=== PATIENT | male | born 1955 | race Caucasian/White ===

== ENCOUNTER 2022-07-17 09:09 | Emergency (ER) | payer MEDICARE, SELFPAY ==
[2022-07-17] VITALS (7 sets, daily range): BP systolic 134–164; BP diastolic 83–98; PULSE 68–109; RESP 11–18; TEMP 36.7–36.8; O2SAT 95–98
--- NOTE | ~2022-07-17 | XR_ITS ---
EXAMINATION: XR chest 2V 07/17/2022 09:50 INDICATION: History of COPD PROCEDURE: 2 view chest COMPARISON: Comparison to multiple prior studies sequentially, with oldest reviewed study dated 04/05. FINDINGS: The lungs are clear. The cardiomediastinal silhouette is within normal limits. There are no pleural effusions. There is no pneumothorax suspected. IMPRESSION: 1: NO ACUTE CARDIOPULMONARY DISEASE. Reviewed, dictated and finalized at location A.
--- NOTE | ~2022-07-17 | CT_ITS ---
EXAMINATION: CT abdomen pelvis w con DATE: 07/17/2022 12:15 INDICATION: Cramping and bloating TECHNIQUE: Computed tomography (CT) of the abdomen and pelvis was performed with 100 cc Omnipaque 350 intravenous contrast. The dose-length product was 942.16 mGy-cm. Automated exposure control and iter ative reconstruction technique were employed. COMPARISON: None. FINDINGS: There is right middle lobe atelectasis/scarring. There is emphysema. There is right lower l obe bronchiectasis. There are gallstones. There is abnormal thickening of the distal aspect of the st omach and duodenum with mild surrounding inflammatory changes, consistent with gastroenteritis or pep tic ulcer disease. No evidence for perforation or abscess. No free air or free fluid. The spleen, and kidneys are unremarkable. There are small subcentimeter hypodense nodules of the adrenal glands, mos t likely benign adenomas. There are pancreatic calcifications, consistent with chronic pancreatitis. Nonobstructive bowel pattern. Normal appendix. Colonic diverticulosis without evidence for diverticul itis. Small fat-containing umbilical hernia. There is a lipoma involving the right posterior abdomina l wall musculature. Mild lumbar spondylosis. There is moderate osteoarthritis of the hips. IMPRESSION: 1. Abnormal thickening of the distal stomach and duodenum, consistent with gastroenteritis versus pep tic ulcer disease. 2: Cholelithiasis. 3: Chronic pancreatitis. Reviewed, dictated and finalized at location A. IMPRESSION: 1. Abnormal thickening of the distal stomach and duodenum, consistent with dean roenteritis versus peptic ulcer disease. 2: Cholelithiasis. 3: Chronic pancreatitis.
[2022-07-17] MEDS: SODIUM CHLORIDE 0.9% IV 1,000 ML 999 ML IV CONT ×2 (09:32→12:15)
[2022-07-17 09:38] LABS: Basophils Absolute Auto 0.1 K/mm3 (0.0-0.1); Basophils Percent Auto 0.4 % (0.2-1.2); Eosinophils Percent Auto 0.2 % (0-4.4); Hematocrit 52.2 % (42.0-52.0); Hemoglobin 18.1 g/dL (14.0-18.0); Immature Granulocyte Absolute 0.04 K/mm3 (0.00-0.031); Immature Granulocyte Percent A 0.3 % (0-0.5); Lymphocytes Absolute Auto 1.32 K/mm3 (0.9-3.2); Lymphocytes Percent Auto 10.1 % (18.3-44.2); Mean Corpuscular HGB Conc 34.7 g/dl (32-36); Mean Corpuscular Hemoglobin 29.6 pg (26-34); Mean Corpuscular Volume 85.3 fl (80-100); Mean Platelet Volume 9.1 fl (7.4-10.4); Monocytes Absolute Auto 1.2 K/mm3 (0.1-0.6); Monocytes Percent Auto 9.1 % (2.6-8.5); Neutrophils Absolute Auto 10.5 K/mm3 (1.3-6.7); Neutrophils Percent Auto 79.9 % (45.5-73.1); Platelet Count Result 318 k/mm3 (150-375); Red Blood Count 6.12 M/mm3 (4.6-6.20); Red Cell Distribution Width 12.4 % (11.5-14.5); White Blood Count 13.1 K/mm3 (4.5-10.0)
[2022-07-17 09:47] LABS: Alanine Aminotransferase 32 U/L (6-50); Albumin Level 4.7 g/dL (3.5-5.1); Alkaline Phosphatase 97 U/L (38-126); Anion Gap 10 mmol/L (8-16); Aspartate Amino Transferase 34 U/L (17-59); Bilirubin,Total 0.6 mg/dL (0.2-1.3); Blood Urea Nitrogen 55 mg/dL (9-20); Calcium 8.8 mg/dL (8.4-10.2); Carbon Dioxide 25 mmol/L (22-30); Chloride 91 mmol/L (98-107); Estimated CRCL calculation 38 ml/min; Estimated Glomerular Filt Rate 43; Glucose 388 mg/dL (65-110); Lipase 74 U/L (23-300); Potassium 4.3 mmol/L (3.4-5.0); Sodium 126 mmol/L (137-145)
--- NOTE | 2022-07-17 10:14 | ED.GENADULT ---
HPI - General Adult General Chief complaint: Nausea/Vomiting/Diarrhea Stated complaint: COPD diarrhea, nausea Time Seen by Provider: 07/17/22 09:14 History of Present Illness HPI narrative: Patient is a 67-year-old male who presents to the ER with multiple issues. Reports he has been feeling fatigued over the last week. Reports he had some cough and shortness of breath related to poor air quality recently. He was started on a inhaler which has helped. However last day he has developed some diarrhea and nausea. No dizziness. No loss consciousness. No fevers or chills or sweats. No urinary symptoms. Related Data Allergies Allergy/AdvReac Type Severity Reaction Status Date / Time azithromycin Allergy Mild Hives Verified 07/17/22 09:10 Review of Systems Review of Systems: All systems reviewed & are unremarkable except as noted in HPI and below Constitutional: Constitutional: Denies chills, Reports fatigue, Denies fever(s) and Reports weakness ENT: Denies nasal congestion and Denies sore throat Cardiovascular: Cardiovascular: Denies chest pain, Denies rapid heart rate and Denies radiating jaw, neck or arm pain Respiratory: Respiratory: Reports cough, Reports dyspnea and Reports wheezing Gastrointestinal: Gastrointestinal: Denies abdominal pain, Reports diarrhea, Reports nausea and Reports vomiting Genitourinary: Genitourinary: Denies dysuria and Denies urinary frequency Musculoskeletal: Musculoskeletal: Denies back pain and Denies myalgias PMFSH Past Medical History Medical History COPD (chronic obstructive pulmonary disease) Erectile dysfunction Hypertension Mixed hyperlipidemia Stage 3a chronic kidney disease (CKD) Supraventricular tachycardia 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, controlled, with neuropathy Surgical History Surgical History History of bilateral inguinal hernia repair History of right knee surgery Family History Family History Sibling Asthma Mother Asthma Diabetes mellitus Father Diabetes mellitus Hypertension Social History Social History Years smoked: 35 Smoking status: Former smoker Second hand tobacco smoke exposure: No Smoking end date: 02/08/04 Alcohol intake: current Drinks per week: 5 Substance use: never Substance use type: does not use Living arrangements: with family Occupation/Education: retired Gender identity (if verbalized by the patient): Male Sexual Orientation (if Verbalized by the Patient): Straight or Heterosexual Spiritual care concerns: No Agree to blood products: Yes Exam Narrative: GENERAL: Well-appearing, well-nourished, and in no acute distress. HEAD: Normocephalic, atraumatic. ENT: Mucous membranes moist. CHEST: Clear to auscultation. No respiratory distress. HEART: Regular rate and rhythm. Normal peripheral pulses. ABDOMEN: Soft, nontender, nondistended. EXTREMITIES: Normal range of motion. No edema. SKIN: Warm, dry, no rash. NEURO: Alert and oriented x3. PSYCH: Normal mood and affect. Course Course Emergency Course: Patient still some bloating and discomfort. CT scan abdomen. Evidence of gastritis versus peptic ulcer disease versus gastroenteritis. Educated patient on reasonable findings and treatment plan and he is verbalized understanding. Patient received 2 L of IV fluid. Vital Signs Vital signs: Vital Signs Pulse Oximetry 96 07/17/22 09:18 Temperature 98.3 F 07/17/22 11:00 Pulse Rate 68 07/17/22 11:00 Respiratory Rate 16 07/17/22 11:00 Blood Pressure 134/89 07/17/22 11:00 Pulse Oximetry 98 07/17/22 11:00 Oxygen Delivery Room Air 07/17/22 09:19 Medical Decision Making Vital
[2022-07-17 10:28] LABS: Appearance Urine Clear (Clear); Bilirubin Urine Negative (Negative); Blood Urine Negative (Negative); Color Urine Yellow (Yellow); Glucose Urine UA 3+ mg/dL (Negative); Ketones Urine Negative (Negative); Leukocyte Esterase Ur Negative LEU/UL (Negative); Nitrate Urine Negative (Negative); Protein Urine Negative (Negative); Urobilinogen Urine 0.2 mg/dL (<2.0)
[2022-07-17 10:35] LABS: Add Urine Microscopic? NO
== END 2022-07-17 13:01 | disposition home or self-care (01) ==
PROVIDERS: Emergency Provider Emergency Medicine; PCP Family Medicine Adolescent Medicine
DX: K52.9 Noninfective gastroenteritis and colitis, unspecified (principal); E86.0 Dehydration; J44.9 Chronic obstructive pulmonary disease, unspecified; I12.9 Hypertensive chronic kidney disease with stage 1 through stage 4 chronic kidney disease, or unspecified chronic kidney disease; E11.22 Type 2 diabetes mellitus with diabetic chronic kidney disease; N18.31 Chronic kidney disease, stage 3a; E78.2 Mixed hyperlipidemia; I47.1 Supraventricular tachycardia; E11.40 Type 2 diabetes mellitus with diabetic neuropathy, unspecified; Z87.891 Personal history of nicotine dependence; Z79.51 Long term (current) use of inhaled steroids; Z79.4 Long term (current) use of insulin; Z79.84 Long term (current) use of oral hypoglycemic drugs
CPT/HCPCS: 36415; 71046; 74177; 80053; 81003; 83690; 85025; 96360; 96361; 99284; J7030; Q9967

== ENCOUNTER 2023-01-24 13:56 | Outpatient (CLI) | payer MEDICARE, SELFPAY ==
[2023-01-24 15:01] LABS: Influenza A QL RT-PCR Negative (Negative); Influenza B QL RT-PCR Negative (Negative); RSV RNA, RT-PCR Negative (Negative); SARS-CoV-2 RNA PCR Positive (Negative)
== END 2023-01-24 13:57 | disposition home or self-care (01) ==
LOC: ANHLAB 13:57
PROVIDERS: PCP Family Medicine Adolescent Medicine; Visit Provider Nurse Practitioner Family
DX: R50.9 Fever, unspecified (principal); Z20.822 Contact with and (suspected) exposure to COVID-19
CPT/HCPCS: 87637

== ENCOUNTER 2023-04-21 19:48 | Emergency (ER) | payer MEDICARE, SELFPAY ==
[2023-04-21] VITALS (8 sets, daily range): BP systolic 170–181; BP diastolic 84–99; PULSE 107–123; RESP 13–25; TEMP 36.9; O2SAT 95–97
[2023-04-21 19:58] LABS: Glucose Point of Care 321 mg/dl (65-105)
[2023-04-21 20:13] LABS: Basophils Percent Auto 0.2 % (0.2-1.2); Hematocrit 53.7 % (42.0-52.0); Hemoglobin 18.5 g/dL (14.0-18.0); Immature Granulocyte Absolute 0.07 K/mm3 (0.00-0.031); Immature Granulocyte Percent A 0.4 % (0-0.5); Lymphocytes Percent Auto 5.3 % (18.3-44.2); Mean Corpuscular HGB Conc 34.5 g/dl (32-36); Mean Corpuscular Hemoglobin 29.5 pg (26-34); Mean Corpuscular Volume 85.5 fl (80-100); Mean Platelet Volume 9.1 fl (7.4-10.4); Monocytes Absolute Auto 0.5 K/mm3 (0.1-0.6); Monocytes Percent Auto 3.1 % (2.6-8.5); Neutrophils Absolute Auto 15.5 K/mm3 (1.3-6.7); Platelet Count Result 324 k/mm3 (150-375); Red Blood Count 6.28 M/mm3 (4.6-6.20); Red Cell Distribution Width 12.7 % (11.5-14.5); White Blood Count 17.1 K/mm3 (4.5-10.0)
[2023-04-21 20:23] LABS: Albumin Level 4.9 g/dL (3.5-5.1); Alkaline Phosphatase 94 U/L (38-126); Anion Gap 19 mmol/L (8-16); Aspartate Amino Transferase 30 U/L (17-59); Bilirubin,Total 0.8 mg/dL (0.2-1.3); Blood Urea Nitrogen 29 mg/dL (9-20); Calcium 10.4 mg/dL (8.4-10.2); Carbon Dioxide 18 mmol/L (22-30); Chloride 95 mmol/L (98-107); Estimated CRCL calculation 51 ml/min; Estimated Glomerular Filt Rate 51; Glucose 310 mg/dL (65-110); Lipase 92 U/L (23-300); Potassium 4.2 mmol/L (3.4-5.0); Sodium 132 mmol/L (137-145)
[2023-04-21 20:33] LABS: Alanine Aminotransferase 28 U/L (6-50)
[2023-04-21 21:36] LABS: Appearance Urine Clear (Clear); Bilirubin Urine Negative (Negative); Blood Urine Negative (Negative); Color Urine Yellow (Yellow); Glucose Urine UA 3+ mg/dL (Negative); Ketones Urine Trace mg/dL (Negative); Leukocyte Esterase Ur Negative LEU/UL (Negative); Nitrate Urine Negative (Negative); Protein Urine Negative (Negative); Urobilinogen Urine 0.2 mg/dL (<2.0)
[2023-04-21 21:40] LABS: Add Urine Microscopic? NO; Specific Grav Ur 1.035 (1.001-1.035)
[2023-04-21] MEDS: ONDANSETRON INJ 4 MG/2 ML VIAL IV PUSH (21:51)
[2023-04-21] MEDS: SODIUM CHLORIDE 0.9% IV 3,000 ML 999 ML IV CONT (21:51)
[2023-04-21] MEDS: FAMOTIDINE 20 MG/2 ML VIAL IV PUSH (21:51)
[2023-04-21 22:33] LABS: Influenza A QL RT-PCR Negative (Negative); Influenza B QL RT-PCR Negative (Negative); RSV RNA, RT-PCR Negative (Negative); SARS-CoV-2 RNA PCR Negative (Negative)
--- NOTE | 2023-04-21 23:22 | PC.NURSE ---
Patient ambulated to the restroom
--- NOTE | 2023-04-21 23:27 | ED.GENADULT ---
HPI - General Adult General Chief complaint: Nausea/Vomiting/Diarrhea Stated complaint: vomiting, diarrhea Time Seen by Provider: 04/21/23 21:16 History of Present Illness HPI narrative: this is a 67-year-old male presenting ED with chief complaint of nausea vomiting diarrhea x1 day. patient denies fever chills chest pain difficulty breathing abdominal pain or urinary symptoms. Patient says he has had the stomach flu 2 times previously this year with similar presentation. 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, controlled, with neuropathy Surgical History Surgical History History of bilateral inguinal hernia repair History of right knee surgery Family History Family History Sibling Asthma Mother Asthma Diabetes mellitus Father Diabetes mellitus Hypertension Social History Social History Years smoked: 35 Smoking status: Former smoker Second hand tobacco smoke exposure: No Smoking end date: 02/08/04 Alcohol intake: current Drinks per week: 5 Substance use: never Substance use type: does not use Living arrangements: with family Occupation/Education: retired Gender identity (if verbalized by the patient): Male Sexual Orientation (if Verbalized by the Patient): Straight or Heterosexual Spiritual care concerns: No Agree to blood products: Yes Exam Narrative: APPEARANCE: No apparent distress. Head: atraumatic. EYES: EOMI, NOSE: Atraumatic NECK: Trachea midline RESPIRATORY: No increased rate of breathing CTAB CARDIOVASCULAR: tachycardic, no peripheral edema ABDOMINAL: abdomen is soft nontender with no guarding or rebound MUSCULOSKELETAl: No obvious deformities NEURO: Alert. Moving 4/4 extremities SKIN:: Warm, dry. Normal color PSYCHIATRIC: Normal affect Course Vital Signs Vital signs: Vital Signs Temperature 98.5 F 04/21/23 19:51 Pulse Rate 123 H 03/14/24 19:51 Respiratory Rate 14 04/21/23 19:51 Blood Pressure 179/99 H 04/21/23 19:51 Pulse Oximetry 95 04/21/23 19:51 Oxygen Delivery Room Air 04/21/23 19:51 Temperature 98.5 F 04/21/23 19:51 Pulse Rate 96 04/22/23 00:31 Respiratory Rate 20 04/22/23 00:31 Blood Pressure 112/69 04/22/23 00:31 Pulse Oximetry 96 04/21/23 23:06 Oxygen Delivery Room Air 04/21/23 19:51 Medical Decision Making [facility] Narrative Medical decision making narrative: -Course: 67-year-old male presenting with 1 day of nausea vomiting diarrhea. Tachycardic on arrival. completely benign abdominal exam. Patient given 3 L of fluid and antiemetics. Heart rate improved. Patient is nowtolerating water. On re-evaluation his abdominal exam is still benign. White count is elevated but infectious disease workup is negative. repeate labowrk showed improvement in white count and metabolic panel. Clinicallly patient is much improved and requesting discharge. VSS and well-appearing. History and physical consistent with gastroenteritis. Discussed admission versus discharge the patient is comfortable going home and attempting oral hydration. Patient discharged with antiemetics. -DDX includes but is not limited to: Gastroenteritis, viral syndrome, dehydration, sepsis, UTI, pneumonia -Co-morbidities complicating care: COPD depression, diabetes -Hx from independent Sources: family at bedside -Jj
[2023-04-21] MEDS: MAG HYDROX/AL HYDROX/SIMETH 30 ML UDC PO (23:36)
[2023-04-21] MEDS: METOCLOPRAMIDE HCL INJ 10 MG/2 ML VIAL IV PUSH (23:36)
[2023-04-22 00:01] VITALS: BP 164/90; PULSE 115; RESP 29
[2023-04-22 00:02] VITALS: PULSE 109; RESP 24
[2023-04-22 00:15] VITALS: PULSE 113; RESP 21
[2023-04-22 00:31] VITALS: BP 112/69; PULSE 96; RESP 20
[2023-04-22 03:59] LABS: Anion Gap 8 mmol/L (8-16); Blood Urea Nitrogen 29 mg/dL (9-20); Calcium 8.7 mg/dL (8.4-10.2); Carbon Dioxide 19 mmol/L (22-30); Chloride 105 mmol/L (98-107); Estimated CRCL calculation 59 ml/min; Estimated Glomerular Filt Rate > 60; Glucose 214 mg/dL (65-110); Potassium 4.4 mmol/L (3.4-5.0); Sodium 132 mmol/L (137-145)
--- NOTE | 2023-04-22 04:05 | PC.NURSE ---
SEE DOWNTIME CHARTING
[2023-04-22 04:12] LABS: Basophils Percent Auto 0.1 % (0.2-1.2); Hematocrit 46.5 % (42.0-52.0); Hemoglobin 15.7 g/dL (14.0-18.0); Immature Granulocyte Absolute 0.07 K/mm3 (0.00-0.031); Immature Granulocyte Percent A 0.5 % (0-0.5); Lymphocytes Absolute Auto 0.67 K/mm3 (0.9-3.2); Lymphocytes Percent Auto 4.6 % (18.3-44.2); Mean Corpuscular HGB Conc 33.8 g/dl (32-36); Mean Corpuscular Hemoglobin 29.7 pg (26-34); Mean Corpuscular Volume 87.9 fl (80-100); Monocytes Absolute Auto 0.5 K/mm3 (0.1-0.6); Monocytes Percent Auto 3.2 % (2.6-8.5); Neutrophils Absolute Auto 13.3 K/mm3 (1.3-6.7); Neutrophils Percent Auto 91.6 % (45.5-73.1); Platelet Count Result 277 k/mm3 (150-375); Red Blood Count 5.29 M/mm3 (4.6-6.20); Red Cell Distribution Width 12.9 % (11.5-14.5); White Blood Count 14.5 K/mm3 (4.5-10.0)
== END 2023-04-22 03:55 | disposition home or self-care (01) ==
PROVIDERS: Emergency Provider Emergency Medicine; PCP Family Medicine Adolescent Medicine
DX: K52.9 Noninfective gastroenteritis and colitis, unspecified (principal); Z20.822 Contact with and (suspected) exposure to COVID-19; J44.9 Chronic obstructive pulmonary disease, unspecified; E78.2 Mixed hyperlipidemia; E11.22 Type 2 diabetes mellitus with diabetic chronic kidney disease; I12.9 Hypertensive chronic kidney disease with stage 1 through stage 4 chronic kidney disease, or unspecified chronic kidney disease; N18.31 Chronic kidney disease, stage 3a; E11.40 Type 2 diabetes mellitus with diabetic neuropathy, unspecified; F32.A Depression, unspecified; Z87.891 Personal history of nicotine dependence; R00.0 Tachycardia, unspecified; R94.31 Abnormal electrocardiogram [ECG] [EKG]; Z79.4 Long term (current) use of insulin; Z79.84 Long term (current) use of oral hypoglycemic drugs
CPT/HCPCS: 36415; 80048; 80053; 82948; 83690; 85025; 87637; 93005; 96361; 96374; 96375; 99284; A9270; J2405; J2765; J7030

== ENCOUNTER 2023-05-13 06:24 | Emergency (ER) | payer MEDICARE, SELFPAY ==
--- NOTE | ~2023-05-13 | CT_ITS ---
EXAMINATION: CT abdomen pelvis w con DATE: 05/13/2023 07:55 INDICATION: Abdominal pain. Nausea and vomiting. TECHNIQUE: Computed tomography (CT) of the abdomen and pelvis was performed with 100 mL Omnipaque 350 intravenous contrast. Automated exposure control and iterative reconstruction technique were employe d. The dose-length product was 932.71 mGy-cm. COMPARISON: None. FINDINGS: The visualized portions of the lung bases demonstrate emphysema and mild atelectasis. No pl eural effusion. The heart size is normal. No pericardial effusion. The liver is normal. There is a ga llstone in the gallbladder, which is normal in size. The spleen is normal. There are calcifications i n the pancreas, consistent with chronic pancreatitis. Left adrenal gland is normal. There is a 12 mm mass in right adrenal gland measuring soft tissue attenuation, likely an adenoma in the absence of kn own malignancy. There is a 12 mm cyst in right kidney. Left kidney is normal. There is a 3.0 cm lipom a in the right flank musculature. There is diverticulosis of the colon without evidence of diverticul itis. There are no dilated loops of bowel. The appendix is normal. Aortic atherosclerosis is noted. T here are no pathologically enlarged lymph nodes. There is no free intraperitoneal fluid. There is mil d thoracic and lumbar spondylosis. There is mild chronic anterior wedging of multiple thoracic verteb ral bodies. IMPRESSION: 1. No etiology for the patient's symptoms. Reviewed, dictated and finalized at location A.
[2023-05-13 06:32] VITALS: BP 179/97; PULSE 90; RESP 24; TEMP 36.7; O2SAT 98
[2023-05-13 07:03] LABS: Basophils Percent Auto 0.2 % (0.2-1.2); Hematocrit 52.8 % (42.0-52.0); Hemoglobin 17.8 g/dL (14.0-18.0); Immature Granulocyte Absolute 0.08 K/mm3 (0.00-0.031); Immature Granulocyte Percent A 0.4 % (0-0.5); Lymphocytes Absolute Auto 1.01 K/mm3 (0.9-3.2); Lymphocytes Percent Auto 5.1 % (18.3-44.2); Mean Corpuscular HGB Conc 33.7 g/dl (32-36); Mean Corpuscular Hemoglobin 29.5 pg (26-34); Mean Corpuscular Volume 87.6 fl (80-100); Mean Platelet Volume 9.3 fl (7.4-10.4); Monocytes Absolute Auto 1.4 K/mm3 (0.1-0.6); Monocytes Percent Auto 7.1 % (2.6-8.5); Neutrophils Absolute Auto 17.4 K/mm3 (1.3-6.7); Neutrophils Percent Auto 87.2 % (45.5-73.1); Platelet Count Result 381 k/mm3 (150-375); Red Blood Count 6.03 M/mm3 (4.6-6.20); Red Cell Distribution Width 12.7 % (11.5-14.5); White Blood Count 19.9 K/mm3 (4.5-10.0)
[2023-05-13 07:24] LABS: Alanine Aminotransferase 21 U/L (6-50); Albumin Level 4.8 g/dL (3.5-5.1); Alkaline Phosphatase 114 U/L (38-126); Anion Gap 14 mmol/L (4-12); Aspartate Amino Transferase 29 U/L (17-59); Bilirubin,Total 0.9 mg/dL (0.2-1.3); Blood Urea Nitrogen 39 mg/dL (9-20); Calcium 9.9 mg/dL (8.4-10.2); Carbon Dioxide 22 mmol/L (22-30); Chloride 93 mmol/L (98-107); Estimated CRCL calculation 50 ml/min; Estimated Glomerular Filt Rate 51; Glucose 323 mg/dL (65-110); Lipase 84 U/L (23-300); Potassium 4.4 mmol/L (3.4-5.0); Sodium 129 mmol/L (137-145)
[2023-05-13 07:30] VITALS: PULSE 114; RESP 17; O2SAT 94
--- NOTE | 2023-05-13 07:39 | ED.GENADULT ---
HPI - General Adult General Chief complaint: Nausea/Vomiting/Diarrhea Stated complaint: vomiting Time Seen by Provider: 05/13/23 06:55 History of Present Illness HPI narrative: 68-year-old male presents to the emergency department for evaluation of lower abdominal pain with associated nausea. Patient states that onset of the nausea and vomiting yesterday. Patient complains of lower abdominal pain. Patient denies any previous abdominal surgeries. Patient does have currently worsening dental caries. 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, controlled, with neuropathy Surgical History Surgical History History of bilateral inguinal hernia repair History of right knee surgery Family History Family History Sibling Asthma Mother Asthma Diabetes mellitus Father Diabetes mellitus Hypertension Social History Social History Years smoked: 35 Smoking status: Former smoker Second hand tobacco smoke exposure: No Smoking end date: 02/08/04 Alcohol intake: current Drinks per week: 5 Substance use: never Substance use type: does not use Living arrangements: with family Occupation/Education: retired Gender identity (if verbalized by the patient): Male Sexual Orientation (if Verbalized by the Patient): Straight or Heterosexual Spiritual care concerns: No Agree to blood products: Yes Exam Narrative: APPEARANCE: Well appearing, no pain, no distress, well-nourished. HEAD: normocephalic, atraumatic. Mouth: Multiple dental caries EYES: PERRLA/EOMI, conjunctivae clear. NOSE: Normal no drainage EARS:TMS clear with good light reflex. THROAT: Pharynx clear, no exudate. NECK: Supple. No adenopathy, no masses. RESPIRATORY: Airway patent, respirations nonlabored. Clear to auscultation bilaterally, no rales, rhonchi, wheezing. CARDIOVASCULAR: Regular rate and rhythm without murmurs rubs or gallops. ABDOMINAL: low abdominal tenderness to palpation MUSCULOSKELETAL: Moves all extremities. Strength/ROM intact, No edema, No calf tenderness. NEURO: Alert. Cranial nerves II through XII intact. grossly intact SKIN: Warm, dry. Normal Color Course Course Emergency Course: Patient was started on antibiotics for dental pain and encouraged to follow a clear liquid diet for his nausea vomiting Vital Signs Vital signs: Vital Signs Temperature 98.1 F 05/13/23 06:32 Pulse Rate 90 05/13/23 06:32 Respiratory Rate 24 H 05/13/23 06:32 Blood Pressure 179/97 H 05/13/23 06:32 Pulse Oximetry 98 05/13/23 06:32 Oxygen Delivery Room Air 05/13/23 06:32 Temperature 98.1 F 05/13/23 06:32 Pulse Rate 79 05/13/23 10:00 Respiratory Rate 23 H 05/13/23 10:00 Blood Pressure 179/97 H 05/13/23 06:32 Pulse Oximetry 97 05/13/23 10:00 Oxygen Delivery Room Air 05/13/23 06:32 Medical Decision Making MDM Narrative Medical decision making narrative: 68-year-old male presents to the emergency department for evaluation of abdominal pain that is been worsening since yesterday. patient was a afebrile but does have an elevated white blood cell count of 19.9. Patient's hemoglobin is 17.8. Patient's CMP is similar to his previous. CT scan showed no acute findings. P
[2023-05-13 07:40] LABS: Appearance Urine Clear (Clear); Bacteria Urine None Seen /hpf; Bilirubin Urine Negative (Negative); Blood Urine Negative (Negative); Color Urine Yellow (Yellow); Glucose Urine UA 3+ mg/dL (Negative); Ketones Urine Trace mg/dL (Negative); Leukocyte Esterase Ur Negative LEU/UL (Negative); Nitrate Urine Negative (Negative); Protein Urine Trace mg/dL (Negative); RBC Urine 0-2 /hpf (0-2); Squamous Epithelial Cell Urine None Seen /hpf (Few); Urobilinogen Urine 0.2 mg/dL (<2.0); WBC Urine 0-5 /hpf (0-3)
[2023-05-13 07:42] LABS: Add Urine Microscopic? YES; Specific Grav Ur 1.033 (1.001-1.035)
[2023-05-13] MEDS: PANTOPRAZOLE SODIUM IV 40 MG VIAL IV PUSH (08:01)
[2023-05-13] MEDS: SODIUM CHLORIDE 0.9% IV 1,000 ML 999 ML IV CONT (08:01)
[2023-05-13] MEDS: ONDANSETRON INJ 4 MG/2 ML VIAL IV PUSH (08:01)
[2023-05-13 09:20] VITALS: PULSE 86; RESP 27; O2SAT 92
[2023-05-13 09:30] VITALS: PULSE 75; RESP 24; O2SAT 96
[2023-05-13 09:47] VITALS: PULSE 72; RESP 21; O2SAT 97
[2023-05-13 10:00] VITALS: PULSE 79; RESP 23; O2SAT 97
== END 2023-05-13 10:12 | disposition home or self-care (01) ==
PROVIDERS: Emergency Medicine; Emergency Provider Emergency Medicine; PCP Family Medicine Adolescent Medicine
DX: R10.9 Unspecified abdominal pain (principal); K02.9 Dental caries, unspecified; E78.5 Hyperlipidemia, unspecified; N18.31 Chronic kidney disease, stage 3a; E11.22 Type 2 diabetes mellitus with diabetic chronic kidney disease; I12.9 Hypertensive chronic kidney disease with stage 1 through stage 4 chronic kidney disease, or unspecified chronic kidney disease; Z87.891 Personal history of nicotine dependence
CPT/HCPCS: 36415; 74177; 80053; 81001; 83690; 85025; 96361; 96374; 96375; 99284; C9113; J2405; J7030; Q9967

== ENCOUNTER 2023-06-03 10:58 | Emergency (ER) | payer MEDICARE, SELFPAY ==
--- NOTE | ~2023-06-03 | XR_ITS ---
EXAMINATION: XR chest 2V DATE: 06/03/2023 11:46 INDICATION: Shortness of breath. TECHNIQUE: Frontal and lateral views of the chest were obtained. COMPARISON: Chest 2 views 07/17/2022, CT abdomen FINDINGS: The lungs are hyperexpanded, consistent with emphysema. There is mild scarring in right mid dle lobe and lingula. There is no pneumonia, pleural effusion, or pneumothorax. The heart size is nor mal. IMPRESSION: 1. Chronic mild scarring in right middle lobe and lingula. 2. Emphysema. Reviewed, dictated and finalized at location A.
[2023-06-03 11:08] VITALS: BP 108/69; PULSE 147; RESP 22; O2SAT 95
--- NOTE | 2023-06-03 11:13 | ECG_ITS ---
SEE SCANNED COPY FOR CONFIRMED REPORT MTDD
[2023-06-03 11:21] VITALS: PULSE 147
[2023-06-03 11:22] LABS: Basophils Absolute Auto 0.1 K/mm3 (0.0-0.1); Basophils Percent Auto 0.9 % (0.2-1.2); Eosinophils Absolute Auto 0.7 K/mm3 (0-0.3); Eosinophils Percent Auto 5.8 % (0-4.4); Hemoglobin 17.1 g/dL (14.0-18.0); Immature Granulocyte Absolute 0.06 K/mm3 (0.00-0.031); Immature Granulocyte Percent A 0.5 % (0-0.5); Lymphocytes Absolute Auto 1.93 K/mm3 (0.9-3.2); Lymphocytes Percent Auto 15.7 % (18.3-44.2); Mean Corpuscular HGB Conc 34.2 g/dl (32-36); Mean Corpuscular Hemoglobin 29.6 pg (26-34); Mean Corpuscular Volume 86.5 fl (80-100); Mean Platelet Volume 9.4 fl (7.4-10.4); Monocytes Absolute Auto 1.2 K/mm3 (0.1-0.6); Monocytes Percent Auto 9.6 % (2.6-8.5); Neutrophils Absolute Auto 8.3 K/mm3 (1.3-6.7); Neutrophils Percent Auto 67.5 % (45.5-73.1); Platelet Count Result 394 k/mm3 (150-375); Red Blood Count 5.78 M/mm3 (4.6-6.20); Red Cell Distribution Width 12.7 % (11.5-14.5); White Blood Count 12.3 K/mm3 (4.5-10.0)
[2023-06-03 11:33] LABS: Alanine Aminotransferase 22 U/L (6-50); Albumin Level 4.3 g/dL (3.5-5.1); Alkaline Phosphatase 112 U/L (38-126); Anion Gap 10 mmol/L (4-12); Aspartate Amino Transferase 28 U/L (17-59); Bilirubin,Total 0.9 mg/dL (0.2-1.3); Blood Urea Nitrogen 34 mg/dL (9-20); Calcium 9.5 mg/dL (8.4-10.2); Carbon Dioxide 20 mmol/L (22-30); Chloride 98 mmol/L (98-107); Estimated CRCL calculation 57 ml/min; Estimated Glomerular Filt Rate 60; Glucose 388 mg/dL (65-110); Potassium 4.8 mmol/L (3.4-5.0); Sodium 128 mmol/L (137-145)
[2023-06-03 11:38] LABS: INR 0.9; Prothrombin Time 12.6 Seconds (11.1-14.7)
[2023-06-03 11:39] LABS: Partial Thromboplastin Time 27.7 Seconds (22.3-36.8)
[2023-06-03 11:44] LABS: NT Pro B Type Natriuretic Pept 1250 pg/mL (19.9-100); Troponin I < 0.012 ng/mL (0.000-0.034)
--- NOTE | 2023-06-03 12:18 | ED.ARRPALP ---
HPI - Arrhythmia/Palpitations General Chief Complaint: Arrhythmia/Palpitations Stated Complaint: FAST HEART RATE, HX SVT Time Seen by Provider: 06/03/23 11:14 Source: patient and family (mom and ) Limitations: no limitations History of Present Illness HPI narrative: Patient presents with reported palpitations beginning at 0500 approximately. He also reportedly felt dizzy and had been short of breath but the latter resolved. Currently on anbiotics for a sinus infection so had been feeling a bit unwell for the past few days. History of SVT requiring pharmacologic intervention but no prior history cardioversion. No caffeine for the past 3-4 days. Occasional marijuana but denies illicit drugs including no amphetamines, cocaine. Follows with lead java programmer Dr Duran. States his meds are metoprolol, amlodipine, and spironolactone. Reports compliance. 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 Denies illicit drugs Living arrangements: with family Occupation/Education: retired Gender identity (if verbalized by the patient): Male Sexual Orientation (if Verbalized by the Patient): Straight or Heterosexual Spiritual care concerns: No Agree to blood products: Yes Exam Const: General: healthy appearing, no acute distress and alert; No diaphoretic or ill appearing Nutritional Appearance: well nourished Orientation/consciousness: patient oriented x3 Limitations: no limitations HENMT: Head: normal to inspection Ears: external ears normal Face/Nose/Sinus: Normal external nose present Face and sinus: normal facial exam Eyes: Conjunctivae: conjunctivae normal Direct Ophthalmoscopy: no photophobia Neck: Neck: normal visual inspection and no meningeal signs Chest: Chest palpation & inspection: normal inspection of the chest and no tenderness Resp: Effort & Inspection: normal respiratory effort, not labored, no retractions, tachypneic and no use of accessory muscles Cardio: Rate: tachycardic Rhythm: regular rhythm GI: Inspection: non-distended Skin: General skin exam: normal color, no jaundice and no pallor Neuro: General: patient oriented x3, moves all extremities, no meningeal signs and no focal motor deficits Speech: normal speech Extrem: General: normal to inspection Other: no edema Psych: Mental Status: mental status grossly normal Affect: normal affect Attitude: cooperative Course Vital Signs Vital signs: Vital Signs Pulse Rate 147 H 06/03/23 11:08 Respiratory Rate 22 H 06/03/23 11:08 Blood Pressure 108/69 06/03/23 11:08 Pulse Oximetry 95 06/03/23 11:08 Oxygen Delivery Room Air 06/03/23 11:08 Pulse Rate 87 06/03/23 15:31 Respiratory Rate 19 06/03/23 15:31 Blood Pressure 125/82 06/03/23 15:31 Pulse Oximetry 97 06/03/23 15:3
[2023-06-03 12:55] LABS: Ethanol < 10 mg/dL (<10)
[2023-06-03 13:01] LABS: Magnesium 1.8 mg/dL (1.6-2.3)
[2023-06-03 13:06] VITALS: BP 109/94; PULSE 171; RESP 18; O2SAT 96
[2023-06-03] MEDS: ADENOSINE IV SOLN 6 MG/2 ML VIAL IV PUSH (13:21)
[2023-06-03] MEDS: ADENOSINE IV SOLN 6 MG/2 ML VIAL 12 MG IV PUSH ×2 (13:25→13:27)
--- NOTE | 2023-06-03 13:34 | ECG_ITS ---
SEE SCANNED COPY FOR CONFIRMED REPORT MTDD
[2023-06-03 15:31] VITALS: BP 125/82; PULSE 87; RESP 19; O2SAT 97
== END 2023-06-03 15:32 | disposition home or self-care (01) ==
PROVIDERS: Emergency Provider Student in an Organized Health Care Education/Training Program; PCP Family Medicine Adolescent Medicine
DX: I47.10 Supraventricular tachycardia, unspecified (principal); D72.829 Elevated white blood cell count, unspecified; R00.2 Palpitations; E11.65 Type 2 diabetes mellitus with hyperglycemia; E78.5 Hyperlipidemia, unspecified; D75.839 Thrombocytosis, unspecified; E87.1 Hypo-osmolality and hyponatremia; R79.89 Other specified abnormal findings of blood chemistry; N18.31 Chronic kidney disease, stage 3a; I12.9 Hypertensive chronic kidney disease with stage 1 through stage 4 chronic kidney disease, or unspecified chronic kidney disease; E11.22 Type 2 diabetes mellitus with diabetic chronic kidney disease; Z87.891 Personal history of nicotine dependence
CPT/HCPCS: 36415; 71046; 80053; 80307; 83735; 83880; 84443; 84484; 85025; 85610; 85730; 93005; 96374; 99284; J0153; J7030

== ENCOUNTER 2023-06-05 18:04 | Emergency (ER) | payer MEDICARE, SELFPAY ==
[2023-06-05] VITALS (15 sets, daily range): BP systolic 105–135; BP diastolic 63–99; PULSE 83–149; RESP 14–20; TEMP 36.4; O2SAT 93–97
--- NOTE | ~2023-06-05 | XR_ITS ---
EXAMINATION: XR chest 1V portable DATE: 06/05/2023 18:57 INDICATION: Chest pain. Shortness of breath. TECHNIQUE: A single frontal view of the chest was obtained. COMPARISON: Chest 2 views 06/03/2023 FINDINGS: There is no pneumonia, pleural effusion, or pneumothorax. The heart size is normal. IMPRESSION: 1. No acute cardiopulmonary disease. Reviewed, dictated and finalized at location E.
--- NOTE | 2023-06-05 18:15 | ECG_ITS ---
SEE SCANNED COPY FOR CONFIRMED REPORT MTDD
--- NOTE | 2023-06-05 18:22 | PC.NURSE ---
Dr. Grayson at bedside evaluating patient
--- NOTE | 2023-06-05 18:24 | ED.ARRPALP ---
HPI - Arrhythmia/Palpitations General Chief Complaint: Arrhythmia/Palpitations Stated Complaint: increased HR Time Seen by Provider: 06/05/23 18:20 History of Present Illness HPI narrative: patient is a 68-year-old male who presents to the ER with racing of the heart. Feels weak and nauseous. No syncope. No chest pain. Has history of SVT. Was converted 2 days ago. Took 7 5 mg metoprolol yesterday with only 50 mg today. He did have some ice tea today. Related Data Allergies Allergy/AdvReac Type Severity Reaction Status Date / Time azithromycin Allergy Mild Hives Verified 06/03/23 11:12 Review of Systems Review of Systems: All systems reviewed & are unremarkable except as noted in HPI and below Constitutional: Constitutional: Reports no additional constitutional complaints ENT: Reports system reviewed and no additional complaints, except as documented Cardiovascular: Cardiovascular: Denies chest pain, Reports rapid heart rate and Denies radiating jaw, neck or arm pain Respiratory: Respiratory: Reports no additional respiratory complaints Gastrointestinal: Gastrointestinal: Reports no additional gastrointestinal complaints Musculoskeletal: Musculoskeletal: Reports no additional musculoskeletal complaints [facility] Past Medical History Medical History COPD (chronic obstructive pulmonary disease) Erectile dysfunction Hypertension Mixed hyperlipidemia Stage 3a chronic kidney disease (CKD) Supraventricular tachycardia 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, controlled, with neuropathy Surgical History Surgical History History of bilateral inguinal hernia repair History of right knee surgery Family History Family History Sibling Asthma Mother Asthma Diabetes mellitus Father Diabetes mellitus Hypertension Social History Social History Years smoked: 35 Smoking status: Former smoker Second hand tobacco smoke exposure: No Smoking end date: 02/08/04 Alcohol intake: current Drinks per week: 5 Substance use: never Substance use type: does not use Living arrangements: with family Occupation/Education: retired Gender identity (if verbalized by the patient): Male Sexual Orientation (if Verbalized by the Patient): Straight or Heterosexual Spiritual care concerns: No Agree to blood products: Yes Exam Narrative: GENERAL: Uncomfortable-appearing, well-nourished, and in no acute distress. HEAD: Normocephalic, atraumatic. ENT: Mucous membranes moist. NECK: Supple. CHEST: Clear to auscultation. No respiratory distress. HEART: tachycardic and regular. Normal peripheral pulses. ABDOMEN: Soft, nontender, nondistended. EXTREMITIES: Normal range of motion. No edema. SKIN: Warm, dry, no rash. NEURO: Alert and oriented x3. PSYCH: Normal mood and affect. Course Course Emergency Course: patient feels improved after 6 of Adenocard. Labs reviewed. Patient did not take his insulin after eating because he went into SVT which is why his glucose is high. discussed with cardiology, recommends he take metoprolol 100 mg daily. Patient verbalized understanding of this. Discharge. Vital Signs Vital signs: Vital Signs Temperature 97.5 F L 06/05/23 18:14 Pulse Rate 149 H 06/05/23 18:14 Respiratory Rate 20 06/05/23 18:14 Blood Pressure 118/90 06/05/23 18:14 Pulse Oximetry 94 06/05/23 18:14 Temperature 97.5 F L 06/05/23 18:14 Pulse Rate 95 06/05/23 18:37 Respiratory Rate 17 06/05/23 18:37 Blood Pressure 105/84 06/05/23 18:31 Pulse Oximetry 97 06/05/23 18:37 Oxygen Delivery Room Air 06/05/23 18:17 MDM - Arrhythmia/Palpitations Lab Data 06/05/23 18:17
[2023-06-05 18:26] LABS: Basophils Absolute Auto 0.1 K/mm3 (0.0-0.1); Basophils Percent Auto 0.6 % (0.2-1.2); Eosinophils Absolute Auto 1.7 K/mm3 (0-0.3); Eosinophils Percent Auto 12.2 % (0-4.4); Hematocrit 48.8 % (42.0-52.0); Hemoglobin 16.9 g/dL (14.0-18.0); Immature Granulocyte Absolute 0.05 K/mm3 (0.00-0.031); Immature Granulocyte Percent A 0.4 % (0-0.5); Lymphocytes Absolute Auto 2.44 K/mm3 (0.9-3.2); Lymphocytes Percent Auto 17.3 % (18.3-44.2); Mean Corpuscular HGB Conc 34.6 g/dl (32-36); Mean Corpuscular Hemoglobin 29.8 pg (26-34); Mean Corpuscular Volume 86.1 fl (80-100); Mean Platelet Volume 9.6 fl (7.4-10.4); Monocytes Absolute Auto 1.4 K/mm3 (0.1-0.6); Monocytes Percent Auto 9.7 % (2.6-8.5); Neutrophils Absolute Auto 8.4 K/mm3 (1.3-6.7); Neutrophils Percent Auto 59.8 % (45.5-73.1); Platelet Count Result 384 k/mm3 (150-375); Red Blood Count 5.67 M/mm3 (4.6-6.20); Red Cell Distribution Width 12.4 % (11.5-14.5); White Blood Count 14.1 K/mm3 (4.5-10.0)
--- NOTE | 2023-06-05 18:29 | PC.NURSE ---
Dr. Kenan FRANK for 6mg adenosine IVP stat. Pt placed on lifeRABTk monitor. IVF started. Adenosine 6mg IV pushed at 1830 Second ekg performed with patient in sinus tachycardia at 108
[2023-06-05] MEDS: SODIUM CHLORIDE 0.9% IV 1,000 ML 999 ML IV CONT (18:30)
--- NOTE | 2023-06-05 18:34 | ECG_ITS ---
SEE SCANNED COPY FOR CONFIRMED REPORT MTDD
[2023-06-05 18:36] LABS: INR 0.9; Prothrombin Time 12.4 Seconds (11.1-14.7)
[2023-06-05 18:38] LABS: Alanine Aminotransferase 20 U/L (6-50); Albumin Level 4.3 g/dL (3.5-5.1); Alkaline Phosphatase 133 U/L (38-126); Anion Gap 10 mmol/L (4-12); Aspartate Amino Transferase 19 U/L (17-59); Bilirubin,Total 0.5 mg/dL (0.2-1.3); Blood Urea Nitrogen 30 mg/dL (9-20); Calcium 9.7 mg/dL (8.4-10.2); Carbon Dioxide 22 mmol/L (22-30); Chloride 101 mmol/L (98-107); Estimated CRCL calculation 50 ml/min; Estimated Glomerular Filt Rate 51; Glucose 408 mg/dL (65-110); Lipase 131 U/L (23-300); Potassium 4.1 mmol/L (3.4-5.0); Sodium 133 mmol/L (137-145)
[2023-06-05 18:49] LABS: Troponin I < 0.012 ng/mL (0.000-0.034)
== END 2023-06-05 20:27 | disposition home or self-care (01) ==
PROVIDERS: Emergency Provider Emergency Medicine; PCP Family Medicine Adolescent Medicine
DX: I47.10 Supraventricular tachycardia, unspecified (principal); J44.9 Chronic obstructive pulmonary disease, unspecified; I12.9 Hypertensive chronic kidney disease with stage 1 through stage 4 chronic kidney disease, or unspecified chronic kidney disease; E11.22 Type 2 diabetes mellitus with diabetic chronic kidney disease; N18.31 Chronic kidney disease, stage 3a; E11.40 Type 2 diabetes mellitus with diabetic neuropathy, unspecified; E78.2 Mixed hyperlipidemia; Z87.891 Personal history of nicotine dependence; I48.92 Unspecified atrial flutter; Z79.4 Long term (current) use of insulin; Z79.84 Long term (current) use of oral hypoglycemic drugs
CPT/HCPCS: 36415; 71045; 80053; 83690; 84484; 85025; 85610; 85730; 93005; 96360; 99284; J0153; J7030

== ENCOUNTER 2024-06-15 12:34 | Emergency (ER) | payer MEDICARE, SELFPAY ==
--- NOTE | ~2024-06-15 | XR_ITS ---
Right wrist Technique: PA, oblique, lateral, and ulnar deviation views were obtained. Clinical History: Pain and swelling Findings: No acute fracture or dislocation is seen. Chronic nonunited fracture of the study process p resent. There is chondrocalcinosis of the TFCC. Osseous alignment is anatomic. Mild degenerative owen ge of the first CMC joint and triscaphe joint present. Soft tissues are otherwise unremarkable. Impression: No acute abnormality. 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 Chondrocalcinosis of the TFCC. Degenerative changes, as above. Reviewed, dictated and finalized at location M. Impression: No acute abnormality. 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 Chondrocalcinosis of the TFCC. Degenerative changes, as above.
[2024-06-15 12:50] VITALS: BP 153/75; PULSE 71; RESP 16; TEMP 36.8; O2SAT 93
--- NOTE | 2024-06-15 12:58 | ED_ITS ---
HPI - Extremity Injury (Upper) General Chief Complaint: Extremity Injury, Upper Stated Complaint: Right Hand Pain Time Seen by Provider: 06/15/24 12:58 Source: patient Mode of arrival: ambulatory Limitations: no limitations History of Present Illness HPI narrative: 69 yo M presents with pain to R wrist. Fell 3 days ago. Tripped and fell forward, put arms out to catch himself. Did not hit head. Was able to get up on his own. CMS intact. Patient arrived with [place] wrap from home. All systems reviewed and negative except as noted above. Related Data Allergies Allergy/AdvReac Type Severity Reaction Status Date / Time azithromycin Allergy Mild Hives Verified 06/15/24 12:40 Review of Systems Review of Systems: CONSTITUTIONAL: Denies fever, chills, or sweats. EYES: Denies visual changes, redness, or discharge. ENT: Denies rhinorrhea, congestion, sore throat, or otalgia. CARDIOVASCULAR: Denies chest pain, palpitations, or edema. RESPIRATORY: Denies cough or dyspnea. GASTROINTESTINAL: Denies abdominal pain, nausea, vomiting, or diarrhea. GENITOURINARY: Denies dysuria or hematuria. SKIN: Denies rash or itching. MUSCULOSKELETAL: Denies back pain, joint pain, or myalgia. Reports right wrist pain with swelling. NEUROLOGIC: Denies headache, numbness, or weakness. PSYCHIATRIC: Denies anxiety or depression. All other systems reviewed are negative, except as documented in HPI. 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, controlled, with neuropathy Erectile dysfunction Hypertension COPD (chronic obstructive pulmonary disease) Supraventricular tachycardia Testicular hypofunction Mixed hyperlipidemia Surgical History Surgical History History of bilateral inguinal hernia repair History of right knee surgery Family History Family History Sibling Asthma Mother Asthma Diabetes mellitus Father Diabetes mellitus Hypertension Social History Social History Years smoked: 35 Smoking status: Former smoker Second hand tobacco smoke exposure: No Smoking end date: 02/08/04 Alcohol intake: current Drinks per week: 5 Other substance usage details: Occasional marijuana. Denies illicit drugs Do You Feel Safe in your Home?: Yes Lack of Transportation: No Lack of Food: Never True Current Housing: I Have Housing Concerned About Future Housing: No Difficulty Paying Gas/Electric Bills: No Difficulty Paying for Meds: Decline to Answer Currently Unemployed: No Education: High School Diploma/GED Difficulty w/ Childcare or Family Care: No Living arrangements: with family Occupation/Education: retired Gender identity (if verbalized by the patient): Male Sexual Orientation (if Verbalized by the Patient): Straight or Heterosexual Spiritual care concerns: No Agree to blood products: Yes Comments At time of signature, agree with nursing past medical, surgical, social and family history. There is no relevant family history pertinent to the presenting complaint. Exam Narrative: GENERAL: This is a well-nourished, well-developed patient, in no apparent distress. HEAD: normocephalic, atraumatic. EYES: PERRL. Sclera clear/white. Vision is grossly intact. EARS: External ears normal NOSE: External nose normal NECK: Neck supple, non-tender without lymphadenopathy, masses or thyromegaly. CARDIOVASCULAR: Regular rate and rhythm without murmurs, gallops, or rubs. RESPIRATORY: Clear to auscultation. Breath sounds equal bilaterally. No wheezes, rales, or rhonchi. SKIN: warm, Dry, intact with no suspicious lesions or rash, good texture and turgor. NEURO: awake, alert, and oriented to person, place and time. There were no obvious focal neurologic abnormalities. EXTREMITIES: Mild amount of swelling to right wrist with generalized tenderness. flexion and extension slightly decreased due to pain and swelling. Neurovascularly intact. Course Course Level of Care: Express Care Visit Vital Signs Vital signs: Vital Signs Temperature 36.8 C 06/15/24 12:50 Pulse Rate 71 06/15/24 12:50 Respiratory Rate 16 06/15/24 12:50 Blood Pressure 153/75 H 06/15/24 12:50 Pulse Oximetry 93 06/15/24 12:50 Oxygen Delivery Room Air 06/15/24 12:50 Temperature 36.8 C 06/15/24 12:50 Pulse Rate 71 06/15/24 12:50 Respiratory Rate 16 06/15/24 12:50 Blood Pressure 153/75 H 06/15/24 12:50 Pulse Oximetry 93 06/15/24 12:50 Oxygen Delivery Room Air 06/15/24 12:50 Reviewed MDM - Extremity Injury (Upper) MDM Narrative Medical decision making narrative: x-ray of right wrist negative for fracture. Discussed results with patient. Patient placed in [place] wrap. Recommend ice, ibuprofen, Tylenol. Recommend follow-up with primary care physician if not improving. Imaging Data My impression: Agree with radiologist Radiologist's impression: Right wrist Technique: PA, oblique, lateral, and ulnar deviation views were obtained. Clinical History: Pain and swelling Findings: No acute fracture or dislocation is seen. Chronic nonunited fracture of the study process present. There is chondrocalcinosis of the TFCC. Osseous alignment is anatomic. Mild degenerative change of the first CMC joint and triscaphe joint present. Soft tissues are otherwise unremarkable. Impression: No acute abnormality. 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 Chondrocalcinosis of the TFCC. Degenerative changes, as above. Discharge Plan Discharge Clinical Impression: Right wrist sprain Qualifiers: Encounter type: initial encounter Wrist sprain location: unspecified location Qualified Code(s): S63.501A - Unspecified sprain of right wrist, initial encounter Patient Disposition: Home Condition: Stable Instructions: Wrist Sprain (ED) Additional Instructions: The x-ray of your right wrist was negative for fracture. Take ibuprofen every 6-8 hours as needed for pain. Apply ice as needed for pain. Elevate when at rest. Follow-up with your primary care physician if swelling and pain not improving. Patient Language: Estonian Prescriptions: New ibuprofen 600 mg tablet 600 mg PO Q6H PRN (Reason: pain) Qty: 30 0RF No Action olopatadine [Pataday Once Daily Relief] 0.2 % drops 1 drp EACH EYE DAILY PRN (Reason: itching) Qty: 2.5 0RF fluticasone propionate 50 mcg/actuation blister with device 2 inh inhalation Q12H Qty: 60 0RF cyclobenzaprine 5 mg tablet 5 mg PO TID PRN (Reason: muscle spasm) Qty: 20 0RF Toujeo Max U-300 SoloStar 300 unit/mL (3 mL) insulin pen See Rx Instructions .ROUTE .COMPLEX Qty: 18 2RF Dose Instruction: INJECT SUBCUTANEOUSLY 46 UNITS DAILY Rx Instructions: INJECT SUBCUTANEOUSLY 38 UNITS DAILY lidocaine (PF) 10 mg/mL (1 %) solution 10 mg intra-articular ONCE Qty: 2 0RF albuterol sulfate 2.5 mg /3 mL (0.083 %) solution for nebulization 2.5 mg inhalation Q4-6H PRN (Reason: shortness of breath or wheezing) Qty: 180 0RF montelukast 10 mg tablet See Rx Instructions .ROUTE .COMPLEX Qty: 100 2RF Dose Instruction: TAKE 1 TABLET BY MOUTH DAILY AT BEDTIME Rx Instructions: TAKE 1 TABLET BY MOUTH DAILY AT BEDTIME fenofibrate 160 mg tablet See Rx Instructions .ROUTE .COMPLEX Qty: 100 2RF Dose Instruction: TAKE 1 TABLET BY MOUTH DAILY Rx Instructions: TAKE 1 TABLET BY MOUTH DAILY sildenafil 100 mg tablet See Rx Instructions .ROUTE .COMPLEX Qty: 12 2RF Dose Instruction: TAKE 1 TABLET BY MOUTH DAILY NEEDED FOR SEXUAL ACTIVITY, ADMINISTER 1/2 HOUR TO 4 HOURS BEFORE ACTIVITY Rx Instructions: TAKE 1 TABLET BY MOUTH DAILY NEEDED FOR SEXUAL ACTIVITY, ADMINISTER 1/2 HOUR TO 4 HOURS BEFORE ACTIVITY (DME) pen needle, diabetic [Comfort EZ Pen [place]] 33 gauge x 3/16 needle See Rx Instructions .ROUTE .COMPLEX Qty: 100 3RF Dose Instruction: USE 1 DAILY TO INJECT INSULIN SUBCUTANEOUSLY Rx Instructions: USE 1 DAILY TO INJECT INSULIN SUBCUTANEOUSLY metoprolol succinate 100 mg tablet extended release 24 hr See Rx Instructions .ROUTE .COMPLEX Qty: 100 3RF Dose Instruction: TAKE 1 TABLET BY MOUTH DAILY Rx Instructions: TAKE 1 TABLET BY MOUTH DAILY glimepiride 2 mg tablet See Rx Instructions .ROUTE .COMPLEX Qty: 100 2RF Dose Instruction: TAKE 1 TABLET BY MOUTH EVERY MORNING WITH BREAKFAST Rx Instructions: TAKE 1 TABLET BY MOUTH EVERY MORNING WITH BREAKFAST amlodipine 5 mg tablet See Rx Instructions .ROUTE .COMPLEX Qty: 100 2RF Dose Instruction: TAKE 1 TABLET BY MOUTH DAILY Rx Instructions: TAKE 1 TABLET BY MOUTH DAILY Trelegy Ellipta 100-62.5-25 mcg blister with device See Rx Instructions .ROUTE .COMPLEX Qty: 180 3RF Dose Instruction: USE 1 INHALATION BY MOUTH ONCE DAILY AT THE SAME TIME EACH DAY Rx Instructions: USE 1 INHALATION BY MOUTH ONCE DAILY AT THE SAME TIME EACH DAY sertraline 50 mg tablet 50 mg PO DAILY Qty: 90 3RF Ozempic 1 mg/dose (4 mg/3 mL) pen injector 1 mg subcut WEEKLY Qty: 9 0RF ezetimibe 10 mg tablet See Rx Instructions .ROUTE .COMPLEX Qty: 100 2RF Dose Instruction: TAKE 1 TABLET BY MOUTH DAILY Rx Instructions: TAKE 1 TABLET BY MOUTH DAILY trazodone 50 mg tablet See Rx Instructions .ROUTE .COMPLEX Qty: 200 3RF Dose Instruction: TAKE 1 TO 2 TABLETS BY MOUTH DAILY AT BEDTIME Rx Instructions: TAKE 1 TO 2 TABLETS BY MOUTH DAILY AT BEDTIME albuterol sulfate 90 mcg/actuation HFA aerosol inhaler See Rx Instructions .ROUTE .COMPLEX Qty: 54 3RF Dose Instruction: USE 2 INHALATIONS BY MOUTH EVERY 4 HOURS NEEDED FOR SHORTNESS OF BREATH OR WHEEZING Rx Instructions: USE 2 INHALATIONS BY MOUTH EVERY 4 HOURS NEEDED FOR SHORTNESS OF BREATH OR WHEEZING (DME) FreeStyle Claudia 2 Plus Sensor Device See Rx Instructions .Route Qty: 3 3RF Rx Instructions: As directed Follow-up/Referrals: Trevor Roche MD [Primary Care Provider] - Time of Disposition: 13:09
== END 2024-06-15 13:15 | disposition home or self-care (01) ==
PROVIDERS: Emergency Provider Nurse Practitioner Family; PCP Family Medicine Adolescent Medicine
DX: S63.501A Unspecified sprain of right wrist, initial encounter (principal); W01.0XXA Fall on same level from slipping, tripping and stumbling without subsequent striking against object, initial encounter; I12.9 Hypertensive chronic kidney disease with stage 1 through stage 4 chronic kidney disease, or unspecified chronic kidney disease; E11.22 Type 2 diabetes mellitus with diabetic chronic kidney disease; N18.31 Chronic kidney disease, stage 3a; Z79.84 Long term (current) use of oral hypoglycemic drugs; Z79.85 Long-term (current) use of injectable non-insulin antidiabetic drugs; E11.40 Type 2 diabetes mellitus with diabetic neuropathy, unspecified; J44.9 Chronic obstructive pulmonary disease, unspecified; E78.2 Mixed hyperlipidemia; Z87.891 Personal history of nicotine dependence
CPT/HCPCS: 73110; 99213; G0463

== ENCOUNTER 2024-11-08 00:36 | Day surgery (SDC) | payer MEDICARE, SELFPAY ==
[2024-10-26 14:11] VITALS: BMI 32.8
--- OUTSIDE RECORDS SUMMARY | 2024-11-08 00:38 | XMS_ITS | Encounter Summary ---
Author Organization [facility] Address [address] [place] [id number] Care Team Providers Care Bench Molder Name Role Phone Trevor Roche MD Primary Care Prov ider Encounter Details Date Type Department Care Team (Late st Contact Info) Description 06/04/2016 Orders Only [facility] ProviderEarlene MD [address] [place] [id number] Social History Tobacco Use Types Packs/Day Years Used Date Smoking Tobacco: Former Cigarettes Q uit: 02/08/2004 Alcohol Use Standard Drinks/Week Comments Yes 0 (1 standard drink = 0.6 oz pur e alcohol) Sex and Gender Information Value Date Recorded Sex Assigned at Not on file 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 Historical Provider [facility] Final Result documented in this encounter Visit Diagnoses Not on filedocumented in this encounter Care Teams Bench Molder Relationship Specialty Start Date End Date Trevor Roche MD PCP - General 10/22/13 documented as of this encounter
--- OUTSIDE RECORDS SUMMARY | 2024-11-08 00:38 | XMS_ITS | Clinical Summary ---
Author Organization [facility] Care Team Providers Care Clamp Remover Name Role Phone Unavailable Primary Care Provider Unavailabl e Social History Tobacco Use Types Packs/Day Years Used Date Smoking Tobacco: Never Assessed Sex and Gender Information Value Date Recorded Sex Assigned at Not on file Legal Sex Male 2:55 PM CDT Gender Identity Not on file Sexual Orientation Not on file Plan of Treatment Health Maintenance Due Date Last Done Comments Hepatitis C Virus (HCV) Screening 1955 TdaP Immunization 1955 Cologuard 2001 Colonoscopy 2001 Colorectal Cancer Screening 2001 Immunochemical Fecal Occult Blood 2001 Zoster Immunization (1 of 2) 2006 Pneumococcal Immunization (50+ years) (2 of 2 - PCV) 01/07/2017 01/08/2016 Influenza Immunization (#1) 10/08/202411/07, 12/25/2015, 12/08/2013, Additional history exists SARS-COV-2 Immunization ( - season) 2024 04/30/2020, 04/08/2020 Respiratory Syncytial Virus (RSV) Immunization (Adult) (1 - 1-dose 75+ series) 05/08/2031 Pneumococcal Immunization Combined Discontinued 01/08/2016 Hepatitis B Immunization Aged Out No longer eligible based on patient's age to complete this topic Human Papillomavirus (HPV) Immunization Aged Out No longer eligible based on patient's age to complete this topic Meningococcal Immunization (ACWY) Aged Out No longer eligible based on patient's age to complete this topic Rotavirus Immunization Aged Out No lo nger eligible based on patient's age to complete this topic
--- OUTSIDE RECORDS SUMMARY | 2024-11-08 00:38 | XMS_ITS | Clinical Summary ---
Author Organization [facility] [place] [address] Address [address] [place] [address] Care Team Providers Care Department Specialist Name Role Phone Trevor Roche MD Primary Care Prov ider Allergies Active Allergy Reactions Criticality Noted Date Comments Azithromycin Hives Medium Medications albuterol HFA (PROVENTIL HFA,VENTOLIN HFA) 90 mcg/actuation inhaler inhale 2 puff by inhalation route every 4 - 6 hours as needed 0 Inhaler 0 3 Active magnesium oxide (MAG-OX) 415 mg (250 mg elemental) tablet take 2 by Oral route once 0 0 5 Active traZODone (DESYREL) 50 mg tablet Take 2 tablets (100 mg total) by mouth as needed Active amLODIPine (NORVASC) 5 mg tablet Take 1 tablet (5 mg total) by mouth daily 8 Active fenofibrate (TRIGLIDE) 160 mg tablet 1 tablet (160 mg total) daily 9 Active sertraline (ZOLOFT) 25 mg tablet Take 2 tablets (50 mg total) by mouth daily 9 Active ezetimibe (ZETIA) 10 mg tablet Take 1 tablet (10 mg total) by mouth daily Active glimepiride (AMARYL) 4 mg tabletIndicatio ns:type 2 diabetes mellitus Take 1 tablet (4 mg total) by mouth daily before breakfast Active fluticasone-ume clidin-vilanter (Trelegy Ellipta) 100-62.5-25 mcg inhaler Inhale 1 puff daily Active TOUJEO 300 unit/mL (1.5 mL) pen for injection 44 Units daily 3 Active montelukast (SINGULAIR) 10 mg tablet Take 1 tablet (10 mg total) by mouth nightly at bedtime 3 Active metoprolol XL (TOPROL-XL) 100 mg 24 hr tablet Take 1 tablet (100 mg total) by mouth daily 4 Active Ozempic 0.25 mg or 0.5 mg (2 mg/3 mL) pen injector injection 5 Active Active Problems Problem Noted Date Diagnosed Date Cardiomyopathy, idiopathic 02/08/2017 Paroxysmal SVT (supraventricular tachycardia) Encounters Date Type Department Care Team Description 09/18/2024 2:45 PM CDT Office Visit [facility] Card[facility] [address] [place] [address] Jonel Vazquez MD Paroxysmal SVT (supraventricular tachycardia) (Primary Dx); Need for lipid screening from Last 3 Months Medical History Medical History Date Comments Hypertension Hypertension Hx Other Medical Diabetes Type I I Adiposity Obesity Social History Tobacco Use Types Packs/Day Years Used Date Smoking Tobacco: Former Smokeless Tobacco: Never Tobacco Cessation:Counseling Given: Not Answered Alcohol Use Standard Drinks/Week Comments Yes 0 (1 standard drink = 0.6 oz pur e alcohol) Sex and Gender Information Value Date Recorded Sex Assigned at Not on file 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 Gender Identity Not on file Sexual Orientation Not on file Obstetrics History Last Filed Vital Signs Vital Sign Reading Time Taken Comments Blood Pressure 126/62 09/18/2024 2:26 PM CDT Pulse 91 09/18/2024 2:26 PM CDT Temperature - - Respiratory Rate 15 08/23/2019 2:45 PM CDT Oxygen Saturation 92% 09/18/2024 2:26 PM CDT Inhaled Oxygen Concentration - - Weight 95.8 kg (211 lb 4.8 oz) 09/18/2024 2:26 P M CDT Height 170.2 cm (5' 7) 09/18/2024 2:26 PM CDT Body Mass Index 33.09 09/18/2024 2:26 PM CDT Plan of Treatment Health Maintenance Due Date Last Done Comments Colon Cancer Screening-Colonoscopy 1955 Depression Screening 1956 Hepatitis C Screening 1956 Prostate Cancer Screening-PSA 1956 DTaP/Tdap/Td Vaccine (1 - Tdap) 05/08/1967 Hepatitis B Screening 1974 Zoster Vaccine (1 of 2) 2006 Pneumococcal vaccine 65+ (2 of 2 - PCV) 01/07/2017 01/08/2016 Fall Risk Assessment 08/22/2020 08/23/2019 Abdominal Aortic Aneurysm (A AA) Screen 2021 Well Visit 65+ 2021 Influenza Vaccine (#1) 2024 0, 12/25/2015, 12/08/2013, Additional history exists Procedures Procedure Name Priority Date/Time Associated Diagnosis Comments POCT LIPID PANEL Routine 09/18/2024 3:55 PM CDT Need for lipid screening from Last 3 Months Results * (ABNORMAL) POCT lipid panel (09/18/2024 3:55 PM CDT) Cholesterol, POC 210 <200 MG/DL HDL, POC 44 >=40 mg/dL Triglycerides, POC 177(A) <=149 mg/dL LDL Cholesterol POC 130(A) <=129 mg/dL Chol/HDL Ratio, POC 2.9 NONE Non-HDL Cholesterol, POC 166 NONE mg/dL Cholesterol Total, POC 210(A) 30 - 199 mg/dL Capillary blood 09/18/2024 3 :55 PM CDT Jonel Vazquez MD POINT OF CARE TEST ORDER MARJAN Final Result from Last 3 Months Insurance [facility] MEDICARE ADVANTAGE [facility] MEDICARE ADVANTAGE Care Teams Department Specialist Relationship Specialty Start Date End Date Trevor Roche MD PCP - General 10/22/13
--- NOTE | 2024-11-08 07:20 | WPDANESEPPF ---
Anes - Initial Pre Proc Eval Procedure: Operation Date: 11/08/24 13:00 Proposed Procedures p Screening Colonoscopy - Stevan Sorenson MD Date/Time: 11/08/24 07:20 Surgeon: Stevan Sorenson MD Pre Op Diagnosis: SCREENING/COLOGUARD POSITIVE Patient Data Age: 69 Gender: M Height: 1.7 m Weight: 95 kg Allergies Allergy/AdvReac Type Severity Reaction Status Date / Time azithromycin Allergy Mild Hives Verified 11/08/24 11:29 Home Medications ?Medication ?Instructions ?Recorded ?Confirmed ?Type albuterol sulfate 2.5 mg/3 mL 2.5 mg (3 mL) inhalation Q4-6H PRN 07/14/22 10/26/24 Rx (0.083 %) solution for nebulization shortness of breath or wheezing #180 mL sildenafil 100 mg tablet See Rx Instructions .Route 11/10/23 10/26/24 Rx .COMPLEX #12 tabs pen needle, diabetic 33 gauge x #100 ea 12/18/23 06/19/24 Rx 3/16 (Comfort EZ Pen [place]) metoprolol succinate 100 mg See Rx Instructions .Route 02/24/24 11/08/24 Rx tablet,extended release 24 hr .COMPLEX #100 tabs amlodipine 5 mg tablet See Rx Instructions .Route 03/20/24 11/08/24 Rx .COMPLEX #100 tabs glimepiride 2 mg tablet See Rx Instructions .Route 03/20/24 11/08/24 Rx .COMPLEX #100 tabs cyclobenzaprine 5 mg tablet 5 mg PO TID PRN muscle spasm #20 03/27/24 10/26/24 Rx tabs olopatadine 0.2 % eye drops 1 drp EACH EYE DAILY PRN itching 03/27/24 11/08/24 Rx (Pataday Once Daily Relief) #2.5 mL fluticasone fur. 100 mcg-umeclid See Rx Instructions .Route 03/31/24 11/08/24 Rx 62.5 mcg-vilant 25 mcg .COMPLEX #180 ea inhalat.powder (Trelegy Ellipta) sertraline 50 mg tablet 50 mg PO DAILY #90 tabs 05/06/24 11/08/24 Rx insulin glargine U-300 conc 300 See Rx Instructions .Route 05/18/24 10/26/24 Rx unit/mL (3 mL) subcutaneous pen .COMPLEX #18 mL (Toujeo Max U-300 SoloStar) ezetimibe 10 mg tablet See Rx Instructions .Route 06/07/24 11/08/24 Rx .COMPLEX #100 tabs albuterol sulfate 90 mcg/actuation See Rx Instructions .Route 06/10/24 10/26/24 Rx aerosol inhaler .COMPLEX #54 grams trazodone 50 mg tablet See Rx Instructions .Route 06/10/24 11/08/24 Rx .COMPLEX #200 tabs ibuprofen 600 mg tablet 600 mg PO Q6H PRN pain #30 tabs 06/15/24 10/26/24 Rx valacyclovir 1 gram tablet 1,000 mg PO Q12H #14 tabs 06/19/24 10/26/24 Rx semaglutide 2 mg/dose (8 mg/3 mL) 2 mg (0.75 mL) subcut WEEKLY #9 mL 08/06/24 11/08/24 Rx subcutaneous pen injector (Ozempic) fenofibrate 160 mg tablet See Rx Instructions .Route 08/17/24 11/08/24 Rx .COMPLEX #100 tabs FreeStyle Claudia 2 Plus Sensor #7 ea 08/20/24 Rx (blood-glucose sensor) montelukast 10 mg tablet See Rx Instructions .Route 08/21/24 11/08/24 Rx .COMPLEX #100 tabs flash glucose scanning reader #1 ea 09/04/24 Rx (FreeStyle Claudia 2 [place]) prednisone 20 mg tablet 40 mg PO PRN Allergies 10/26/24 10/26/24 History Patient hx anesthesia problems: none Family hx anesthesia problems: none Results Review: All pre-operative results and documents have been reviewed as part of the pre-operative evaluation. 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, controlled, with neuropathy Erectile dysfunction Hypertension COPD (chronic obstructive pulmonary disease) Supraventricular tachycardia Testicular hypofunction Mixed hyperlipidemia Surgical History Surgical History History of bilateral inguinal hernia repair History of right knee surgery Family History Family History Sibling Asthma Mother Asthma Diabetes mellitus Father Diabetes mellitus Hypertension Social History Social History Years smoked: 30 Smoking status: Former smoker Tobacco type: cigarettes Second hand tobacco smoke exposure: No Smoking end date: 02/08/04 Alcohol intake: current Drinks per week: 5 Substance use type: marijuana Other substance usage details: Occasional marijuana. Denies illicit drugs Last use: Every other day, liquid Do You Feel Safe in your Home?: Yes Lack of Transportation: No Lack of Food: Never True Current Housing: I Have Housing Concerned About Future Housing: No Difficulty Paying Gas/Electric Bills: No Difficulty Paying for Meds: Decline to Answer Currently Unemployed: No Education: High School Diploma/GED Difficulty w/ Childcare or Family Care: No Living arrangements: with family Occupation/Education: retired Gender identity (if verbalized by the patient): Male Sexual Orientation (if Verbalized by the Patient): Straight or Heterosexual Spiritual care concerns: No Agree to blood products: Yes Anes - Eval Final PreProcedure Day of Procedure 11/08/24 07:20 Patient weight: obese Heart: regular rate and rhythm Lungs: clear to auscultation Airway: Mallampati scale class II Neurological: alert and oriented Last oral intake: >/= 8 hours ASA classification: III Emergent: no Anesthetic plan: proceed Anesthesia type and monitoring: general GIVS and standard monitoring Results Review: All pre-operative results and documents have been reviewed as part of the pre-operative evaluation. Informed Consent: The patient's anesthetic plan and its attendant risks and benefits were discussed with the patient/family/POA. Questions were solicited and answers provided to the satisfaction of the patient/family/POA.
[2024-11-08 11:25] VITALS: BP 139/90; PULSE 95; RESP 18; TEMP 36.7; O2SAT 94; BMI 31.5
[2024-11-08] MEDS: LACTATED RINGERS 1,000 ML 150 ML IV CONT (11:41)
--- NOTE | 2024-11-08 11:42 | SUR.PREOP ---
BG 178 per glucose monitoring patch.
--- NOTE | 2024-11-08 12:52 | P.HP_ITS ---
History of Present Illness History of Present Illness Consent: Risks, benefits, and alternatives have been discussed and questions answered. Patient agrees to proceed with procedure. 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, controlled, with neuropathy Erectile dysfunction Hypertension COPD (chronic obstructive pulmonary disease) Supraventricular tachycardia Testicular hypofunction Mixed hyperlipidemia Surgical History Surgical History History of bilateral inguinal hernia repair History of right knee surgery Family History Family History Sibling Asthma Mother Asthma Diabetes mellitus Father Diabetes mellitus Hypertension Social History Social History Years smoked: 30 Smoking status: Former smoker Tobacco type: cigarettes Second hand tobacco smoke exposure: No Smoking end date: 02/08/04 Alcohol intake: current Drinks per week: 5 Substance use type: marijuana Other substance usage details: Occasional marijuana. Denies illicit drugs Last use: Every other day, liquid Do You Feel Safe in your Home?: Yes Lack of Transportation: No Lack of Food: Never True Current Housing: I Have Housing Concerned About Future Housing: No Difficulty Paying Gas/Electric Bills: No Difficulty Paying for Meds: Decline to Answer Currently Unemployed: No Education: High School Diploma/GED Difficulty w/ Childcare or Family Care: No Living arrangements: with family Occupation/Education: retired Gender identity (if verbalized by the patient): Male Sexual Orientation (if Verbalized by the Patient): Straight or Heterosexual Spiritual care concerns: No Agree to blood products: Yes Meds Home Medications and Allergies Home Medications ?Medication ?Instructions ?Recorded ?Confirmed ?Type albuterol sulfate 2.5 mg/3 mL 2.5 mg (3 mL) inhalation Q4-6H PRN 07/14/22 10/26/24 Rx (0.083 %) solution for nebulization shortness of breat h or wheezing #180 mL sildenafil 100 mg tablet See Rx Instructions .Route 1 10/26/24 Rx .COMPLEX #12 tabs pen needle, diabetic 33 gauge x #100 ea 12/18/2306/19 Rx 3/16 (Comfort EZ Pen [place]) metoprolol succinate 100 mg See Rx Instructions .Route 02/24/24 11/08/24 Rx tablet,extended release 24 hr .COMPLEX #100 tabs amlodipine 5 mg tablet See Rx Instructions .Route 0 03/20/24 11/08/24 Rx .COMPLEX #100 tabs glimepiride 2 mg tablet See Rx Instructions .Route 0 03/20/24 11/08/24 Rx .COMPLEX #100 tabs cyclobenzaprine 5 mg tablet 5 mg PO TID PRN muscle spa sm #20 03/27/24 10/26/24 Rx tabs olopatadine 0.2 % eye drops 1 drp EACH EYE DAILY PRN i tching 03/27/24 11/08/24 Rx (Pataday Once Daily Relief) #2.5 mL fluticasone fur. 100 mcg-umeclid See Rx Instructions . Route 03/31/24 11/08/24 Rx 62.5 mcg-vilant 25 mcg .COMPLEX #180 ea inhalat.powder (Trelegy Ellipta) sertraline 50 mg tablet 50 mg PO DAILY #90 tabs 04/0911/08/24 Rx insulin glargine U-300 conc 300 See Rx Instructions .R oute 05/18/24 10/26/24 Rx unit/mL (3 mL) subcutaneous pen .COMPLEX #18 mL (Toujeo Max U-300 SoloStar) ezetimibe 10 mg tablet See Rx Instructions .Route 0 06/07/24 11/08/24 Rx .COMPLEX #100 tabs albuterol sulfate 90 mcg/actuation See Rx Instructions .Route 06/10/24 10/26/24 Rx aerosol inhaler .COMPLEX #54 grams trazodone 50 mg tablet See Rx Instructions .Route 0 06/10/24 11/08/24 Rx .COMPLEX #200 tabs ibuprofen 600 mg tablet 600 mg PO Q6H PRN pain #30 t abs 06/15/24 10/26/24 Rx valacyclovir 1 gram tablet 1,000 mg PO Q12H #14 tabs 0 06/19/24 10/26/24 Rx semaglutide 2 mg/dose (8 mg/3 mL) 2 mg (0.75 mL) subcu t WEEKLY #9 mL 08/06/24 11/08/24 Rx subcutaneous pen injector (Ozempic) fenofibrate 160 mg tablet See Rx Instructions .Route 0 08/17/24 11/08/24 Rx .COMPLEX #100 tabs FreeStyle Claudia 2 Plus Sensor #7 ea 08/20/24 Rx (blood-glucose sensor) montelukast 10 mg tablet See Rx Instructions .Route 0 08/21/24 11/08/24 Rx .COMPLEX #100 tabs flash glucose scanning reader #1 ea 09/04/24 Rx (FreeStyle Claudia 2 [place]) prednisone 20 mg tablet 40 mg PO PRN Allergies 10/2610/26/24 History Allergies Allergy/AdvReac Type Severity Reaction Status Date / Time azithromycin Allergy Mild Hives Verified 11/08/24 11:29 Vital Signs Vital Signs - 24 hr 11/08/24 11:25 Temperature 98.1 F Pulse Rate 95 Respiratory Rate 18 Blood Pressure 139/90 Pulse Oximetry 94 Oxygen Delivery Room Air Exam Const: General: comfortable and no acute distress HENMT: Face/Nose/Sinus: Normal nares present Eyes: General: appearance normal, both eyes and all related structures Resp: Auscultation: clear to auscultation bilaterally Cardio: Rate: regular rate Rhythm: regular rhythm GI: Inspection: non-distended GI Palp: Yes Soft to palpation Skin: General skin exam: normal color Extrem: General: normal to inspection Psych: Mental Status: mental status grossly normal Assessment and Plan Assessment and plan (1) Positive colorectal cancer screening using Cologuard test: Code(s): R19.5 - Other fecal abnormalities Status: Acute Assessment and Plan: colonoscopy
[2024-11-08 13:15] VITALS: BP 113/71; PULSE 86; RESP 29; O2SAT 95
--- NOTE | 2024-11-08 13:16 | S_PTH ---
PATIENT: Jonel Espino LOC: [facility]#:[id number] AGE/SX: 69/M ROOM: RE11/08/[address]: Stevan Sorenson MD : [id number] BED: DIS: 11/08/2024 SPEC #: [id number] RECD: 11/08/24 14:18 STATUS: ABRAHAM ROSALES #: [id number] ALBA: 11/08/24 13:[address]: Stevan Sorenson DEPT: [facility] Surgical RECD BY: Liyah Sheldon MLT, ([facility]) ENTERED: 11/08/24 14:20 SP TYPE: Surgical OTHR DR: Trevor Roche MD Tissues: A - Colon Polypectomy B - Colon Polypectomy C - Colon Polypectomy D - Colon Polypectomy Procedures: Hematoxylin and Eosin Stain Gross and Microscopic Level 4
[2024-11-08 13:25] VITALS: BP 128/64; PULSE 77; RESP 24; O2SAT 95
[2024-11-08 13:35] VITALS: BP 145/87; PULSE 85; RESP 21; O2SAT 93
== END 2024-11-08 13:43 | disposition home or self-care (01) ==
PROVIDERS: PCP Family Medicine Adolescent Medicine; Referring Provider Nurse Practitioner Family; Visit Provider Internal Medicine Gastroenterology
PROC: 0DJD8ZZ Inspection of Lower Intestinal Tract, Via Natural or Artificial Opening Endoscopic (ICD-10-PCS; CPT 45378; principal; 2024-11-08 13:00)
DX: Z12.11 Encounter for screening for malignant neoplasm of colon (principal); D12.4 Benign neoplasm of descending colon; D12.5 Benign neoplasm of sigmoid colon; D12.2 Benign neoplasm of ascending colon; D12.3 Benign neoplasm of transverse colon; R19.5 Other fecal abnormalities; K57.30 Diverticulosis of large intestine without perforation or abscess without bleeding; K64.8 Other hemorrhoids; F12.90 Cannabis use, unspecified, uncomplicated; Z87.891 Personal history of nicotine dependence; E66.9 Obesity, unspecified; Z68.31 Body mass index [BMI] 31.0-31.9, adult
CPT/HCPCS: 45385; 88305; J2704; J7120